=== PATIENT | female | born 1940 | race Caucasian/White ===

== ENCOUNTER 2017-03-06 15:27 | Outpatient (CLI) | payer MEDICARE, OTHER | END 2017-03-06 15:28 | disposition short-term general hospital (02) | LOC: EMS 15:27 | PROVIDERS: ATTEND Surgery | DX: R46.4 Slowness and poor responsiveness (principal); R07.81 Pleurodynia; S01.01XA Laceration without foreign body of scalp, initial encounter; V59.40XA Driver of pick-up truck or van injured in collision with unspecified motor vehicles in traffic accident, initial encounter; Y92.413 State road as the place of occurrence of the external cause | CPT/HCPCS: A0425; A0427 ==